=== PATIENT | female | born 1960 | race Two or more races ===

== ENCOUNTER 2022-07-17 11:05 | Emergency (ER) | payer OTHER ==
[~2022-07-17] VITALS: Ht 167.6 cm; Wt 68.1 kg
[2022-07-17 11:15] VITALS: BP 137/64
== END 2022-07-17 16:14 | disposition left against medical advice (07) ==
LOC: ER 11:05 → EDBD 11:05 → ER 16:14
DX: M54.2 Cervicalgia (principal); R51.9 Headache, unspecified; Z53.21 Procedure and treatment not carried out due to patient leaving prior to being seen by health care provider